=== PATIENT | female | born 1955 | race Caucasian/White ===

== ENCOUNTER 2021-02-25 12:46 | Inpatient (IN) ==
[2021-02-25] MEDS ORDERED: cefTRIAXone 2,000 MG in 0.9 % Sodium Chloride Mini Bag 100 ML IVPB ONE (13:58)
[2021-02-25] MEDS ORDERED: 0.9 % Sodium Chloride 1,000 ML IVC ONE (13:58)
[2021-02-25 14:29] LABS: Bilirubin,Urine Negative (Negative); Blood,Urine Moderate (Negative); Clarity,Urine Cloudy (Clear); Color,Urine Yellow (Yellow); Glucose,Urine (UA) Normal (Normal); Ketones,Urine Negative (Negative); Leukocyte Esterase,Urine Small (Negative); Nitrite,Urine Positive (Negative); Protein,Urine 100 mg/dL (Neg-Trace); Specific Gravity,Urine 1.025 (1.010-1.025); Urobilinogen,Urine Normal (Normal)
[2021-02-25 14:36] LABS: Amorphous Sediment,Urine Moderate per hpf (None-Few); Bacteria,Urine Moderate per hpf (None-Few); Squamous Epithelial Cell,Urine Few per hpf (None-Few); WBC,Urine 50-100 per hpf (0-3)
[2021-02-25 14:46] LABS: Hematocrit 28.1 % (35.3-44.9); Hemoglobin 9.5 g/dL (11.5-15.4); Mean Corpuscular HGB Conc 33.8 g/dL (31.6-35.5); Mean Corpuscular Hemoglobin 34.5 pg (28.0-33.3); Mean Corpuscular Volume 102.2 fL (83.0-100.0); Mean Platelet Volume 10.7 fL (9.4-12.4); Platelet Count 121 K/mcL (140-400); Red Blood Count 2.75 M/mcL (3.82-4.97); Red Cell Distribution Width 15.2 % (11.5-14.5); White Blood Count 21.1 K/mcL (4.3-11.1)
[2021-02-25 14:59] LABS: Albumin 3.2 g/dL (3.5-5.7); Albumin/Globulin Ratio 0.9 (1.1-2.2); Bilirubin,Direct 0.2 mg/dL (0.0-0.2); Bilirubin,Indirect 0.5 mg/dL (0.0-1.0); Bilirubin,Total 0.7 mg/dL (0.3-1.0); Calcium 8.2 mg/dL (8.6-10.3); Globulin 3.4 g/dL (2.4-3.5); Potassium 3.3 mEq/L (3.5-5.1); Total Protein 6.6 g/dL (6.4-8.9)
[2021-02-25 15:21] LABS: Basophils # 0.4 K/mcL (0.0-0.2); Lymphocytes # 1.7 K/mcL (0.6-4.6)
[2021-02-25 15:22] LABS: Platelet Estimate Slight Decrease (Normal)
[2021-02-25] MEDS ORDERED: diazePAM 5 MG TABLET PO ONE (15:54)
[2021-02-25] MEDS ORDERED: MOM Conc 10 ML UD.LIQ PO PRN (16:02)
[2021-02-25] MEDS ORDERED: Naloxone 0.4 MG/ML INJ IVP PRN (16:02)
[2021-02-25] MEDS ORDERED: Ondansetron 4 MG/2 ML VIAL IVP PRN (16:02)
[2021-02-25] MEDS ORDERED: Mag Hydrox/Al Hydrox/Simeth 30 ML UDC PO PRN (16:02)
[2021-02-25] MEDS: Acetaminophen 325 MG TABLET PO PRN (17:42)
[2021-02-25] MEDS ORDERED: Ondansetron ODT 4 MG TAB.RAPDIS PO PRN (18:14)
[2021-02-25] MEDS ORDERED: Fluticasone Propionate Nasal 50 MCG/SPRAY BOTTLE NS PRN (18:14)
[2021-02-25] MEDS ORDERED: Dextrose Gel 15 GM/37.5 ML TUBE PO PRN ×2 (18:21)
[2021-02-25] MEDS: Insulin LISPRO 300 UNITS/3 ML VIAL SUBQ SCH (21:15)
[2021-02-25] MEDS: 0.9 % Sodium Chloride 1,000 ML IVC SCH (21:16)
[2021-02-25] MEDS ORDERED: DICLOFENAC TP PRN (23:56)
[2021-02-26] MEDS: Acetaminophen 325 MG TABLET PO PRN ×2 (01:14→10:10)
[2021-02-26] MEDS: 0.9 % Sodium Chloride 1,000 ML IVC SCH ×2 (05:01→16:52)
[2021-02-26 06:05] LABS: blaKPC Carbapenem-Resist Gene Not Detected (Not Detect)
[2021-02-26 06:06] LABS: Acinetobacter baumannii by PCR Not Detected (Not Detect); Candida albicans by PCR Not Detected (Not Detect); Candida glabrata by PCR Not Detected (Not Detect); Candida krusei by PCR Not Detected (Not Detect); Candida parapsilosis by PCR Not Detected (Not Detect); Candida tropicalis by PCR Not Detected (Not Detect); Enterobacter cloacae Cmplx PCR Not Detected (Not Detect); Enterococcus by PCR Not Detected (Not Detect); Escherichia coli by PCR DETECTED (Not Detect); Klebsiella oxytoca by PCR Not Detected (Not Detect); Klebsiella pneumoniae by PCR Not Detected (Not Detect); Proteus by PCR Not Detected (Not Detect); Pseudomonas aeruginosa by PCR Not Detected (Not Detect); Serratia marcescens by PCR Not Detected (Not Detect); Staphylococcus aureus by PCR Not Detected (Not Detect); Staphylococcus by PCR Not Detected (Not Detect); Streptococcus agalactiae(B)PCR Not Detected (Not Detect); Streptococcus by PCR Not Detected (Not Detect); Streptococcus pneumoniae PCR Not Detected (Not Detect); Streptococcus pyogenes (A) PCR Not Detected (Not Detect)
[2021-02-26 07:11] LABS: Basophils % 0.2 %; Eosinophils % 0.1 %; Hematocrit 25.4 % (35.3-44.9); Hemoglobin 8.5 g/dL (11.5-15.4); Immature Granulocytes % 2.3 % (0-4); Lymphocytes # 1.5 K/mcL (0.6-4.6); Lymphocytes % 12.3 %; Mean Corpuscular HGB Conc 33.5 g/dL (31.6-35.5); Mean Corpuscular Hemoglobin 34.8 pg (28.0-33.3); Mean Corpuscular Volume 104.1 fL (83.0-100.0); Mean Platelet Volume 10.1 fL (9.4-12.4); Monocytes # 0.8 K/mcL (0.0-1.3); Monocytes % 6.1 %; Neutrophils # 9.7 K/mcL (1.6-8.9); Platelet Count 103 K/mcL (140-400); Red Blood Count 2.44 M/mcL (3.82-4.97); Red Cell Distribution Width 15.7 % (11.5-14.5); White Blood Count 12.3 K/mcL (4.3-11.1)
[2021-02-26 07:31] LABS: Calcium 7.6 mg/dL (8.6-10.3); Potassium 3.2 mEq/L (3.5-5.1)
[2021-02-26] MEDS: Cholecalciferol (D-3) 1,000 UNIT (25MCG) TABLET PO SCH (08:35)
[2021-02-26] MEDS: *HR* Rivaroxaban 10 MG TABLET PO SCH (08:36)
[2021-02-26] MEDS ORDERED: *HR* Glimepiride 2 MG TABLET PO SCH (09:00)
[2021-02-26] MEDS ORDERED: predniSONE 20 MG TABLET PO SCH (09:00)
[2021-02-26] MEDS ORDERED: cefTRIAXone 2,000 MG in 0.9 % Sodium Chloride Mini Bag 100 ML IVPB SCH (14:00)
[2021-02-26] MEDS: Cefepime HCl 2,000 MG in 0.9 % Sodium Chloride Mini Bag 100 ML IVPB SCH (17:01)
[2021-02-26] MEDS: *HR* OxyCODONE/APAP 10/325 TABLET PO PRN (18:50)
[2021-02-26] MEDS: diazePAM 5 MG TABLET PO PRN (21:19)
[2021-02-26] MEDS: *HR* Dextrose 50 % in Water (Syg) 50 ML SYRINGE IVP PRN (21:19)
[2021-02-26] MEDS: Insulin LISPRO 300 UNITS/3 ML VIAL SUBQ SCH (21:20)
[2021-02-27] MEDS: *HR* Dextrose 50 % in Water (Syg) 50 ML SYRINGE IVP PRN (00:46)
[2021-02-27] MEDS: Cefepime HCl 2,000 MG in 0.9 % Sodium Chloride Mini Bag 100 ML IVPB SCH ×4 (01:25→23:06)
[2021-02-27] MEDS: Acetaminophen 325 MG TABLET PO PRN ×3 (02:57→20:37)
[2021-02-27] MEDS: D5% in Water 1,000 ML IVC PRN ×3 (03:15→23:04)
[2021-02-27] MEDS: *HR* Rivaroxaban 10 MG TABLET PO SCH (08:10)
[2021-02-27] MEDS: Cholecalciferol (D-3) 1,000 UNIT (25MCG) TABLET PO SCH (08:11)
[2021-02-27 08:29] LABS: Basophils % 0.4 %; Eosinophils # 0.2 K/mcL (0.0-0.6); Eosinophils % 3.9 %; Hematocrit 23.5 % (35.3-44.9); Hemoglobin 7.8 g/dL (11.5-15.4); Immature Granulocytes % 0.4 % (0-4); Lymphocytes # 1.4 K/mcL (0.6-4.6); Mean Corpuscular HGB Conc 33.2 g/dL (31.6-35.5); Mean Corpuscular Hemoglobin 34.7 pg (28.0-33.3); Mean Corpuscular Volume 104.4 fL (83.0-100.0); Mean Platelet Volume 11.3 fL (9.4-12.4); Monocytes # 0.7 K/mcL (0.0-1.3); Monocytes % 11.9 %; Neutrophils # 3.4 K/mcL (1.6-8.9); Red Blood Count 2.25 M/mcL (3.82-4.97); Red Cell Distribution Width 15.9 % (11.5-14.5); Segmented Neutrophils % 59.4 %; White Blood Count 5.7 K/mcL (4.3-11.1)
[2021-02-27 08:31] LABS: Platelet Count 87 K/mcL (140-400)
[2021-02-27 08:45] LABS: BUN/Creatinine Ratio 17 (6-26); Blood Urea Nitrogen 17 mg/dL (8-23); Calcium 7.5 mg/dL (8.6-10.3); Carbon Dioxide 25 mEq/L (23-29); Chloride 107 mEq/L (98-107); Glucose 72 mg/dL (70-105); Osmolality,Calculated 286 (280-300); Sodium 138 mEq/L (136-145); eGFR For African Americans > 60 (> 60); eGFR For Non-African Americans 56 (> 60)
[2021-02-27 09:51] LABS: Estimated Average Glucose 120 mg/dl; Hemoglobin A1C 5.8 %
[2021-02-28] MEDS: *HR* Dextrose 50 % in Water (Syg) 50 ML SYRINGE IVP PRN (07:35)
[2021-02-28] MEDS: *HR* Rivaroxaban 10 MG TABLET PO SCH (07:56)
[2021-02-28] MEDS: Cholecalciferol (D-3) 1,000 UNIT (25MCG) TABLET PO SCH (07:56)
[2021-02-28] MEDS: *HR* OxyCODONE/APAP 10/325 TABLET PO PRN (07:57)
[2021-02-28] MEDS: Cefepime HCl 2,000 MG in 0.9 % Sodium Chloride Mini Bag 100 ML IVPB SCH (08:00)
[2021-02-28 08:49] LABS: Basophils % 0.4 %; Eosinophils # 0.2 K/mcL (0.0-0.6); Eosinophils % 2.5 %; Hematocrit 24.8 % (35.3-44.9); Hemoglobin 8.3 g/dL (11.5-15.4); Immature Granulocytes % 0.4 % (0-4); Lymphocytes # 1.8 K/mcL (0.6-4.6); Lymphocytes % 22.4 %; Mean Corpuscular HGB Conc 33.5 g/dL (31.6-35.5); Mean Corpuscular Hemoglobin 34.3 pg (28.0-33.3); Mean Corpuscular Volume 102.5 fL (83.0-100.0); Mean Platelet Volume 10.8 fL (9.4-12.4); Monocytes # 1.2 K/mcL (0.0-1.3); Monocytes % 15.4 %; Neutrophils # 4.7 K/mcL (1.6-8.9); Red Blood Count 2.42 M/mcL (3.82-4.97); Red Cell Distribution Width 15.5 % (11.5-14.5); Segmented Neutrophils % 58.9 %; White Blood Count 7.9 K/mcL (4.3-11.1)
[2021-02-28 08:59] LABS: Platelet Count 93 K/mcL (140-400)
[2021-02-28 09:32] LABS: BUN/Creatinine Ratio 15 (6-26); Blood Urea Nitrogen 15 mg/dL (8-23); Calcium 7.4 mg/dL (8.6-10.3); Carbon Dioxide 23 mEq/L (23-29); Chloride 105 mEq/L (98-107); Glucose 70 mg/dL (70-105); Osmolality,Calculated 279 (280-300); Potassium 3.4 mEq/L (3.5-5.1); Sodium 135 mEq/L (136-145); eGFR For African Americans > 60 (> 60); eGFR For Non-African Americans 55 (> 60)
[2021-02-28] MEDS: cefTRIAXone 2,000 MG in 0.9 % Sodium Chloride Mini Bag 100 ML IVPB SCH (11:41)
[2021-02-28] MEDS: Magnesium Oxide 400 MG TABLET PO SCH (12:02)
[2021-02-28] MEDS: Acetaminophen 325 MG TABLET PO PRN (15:15)
[2021-02-28] MEDS: D5% in Water 1,000 ML IVC PRN (21:04)
[2021-03-01] MEDS: Acetaminophen 325 MG TABLET PO PRN (01:17)
[2021-03-01] MEDS: diazePAM 5 MG TABLET PO PRN (01:17)
[2021-03-01] MEDS: *HR* OxyCODONE/APAP 10/325 TABLET PO PRN (04:27)
[2021-03-01 08:26] LABS: Basophils % 0.4 %; Eosinophils # 0.2 K/mcL (0.0-0.6); Eosinophils % 2.2 %; Hematocrit 25.2 % (35.3-44.9); Hemoglobin 8.4 g/dL (11.5-15.4); Immature Granulocytes % 0.4 % (0-4); Lymphocytes # 2.2 K/mcL (0.6-4.6); Lymphocytes % 29.9 %; Mean Corpuscular HGB Conc 33.3 g/dL (31.6-35.5); Mean Corpuscular Hemoglobin 34.7 pg (28.0-33.3); Mean Corpuscular Volume 104.1 fL (83.0-100.0); Mean Platelet Volume 11.2 fL (9.4-12.4); Monocytes % 13.2 %; Neutrophils # 3.9 K/mcL (1.6-8.9); Platelet Count 100 K/mcL (140-400); Red Blood Count 2.42 M/mcL (3.82-4.97); Red Cell Distribution Width 15.3 % (11.5-14.5); Segmented Neutrophils % 53.9 %; White Blood Count 7.3 K/mcL (4.3-11.1)
[2021-03-01] MEDS: *HR* Rivaroxaban 10 MG TABLET PO SCH (08:43)
[2021-03-01] MEDS: Cholecalciferol (D-3) 1,000 UNIT (25MCG) TABLET PO SCH (08:44)
[2021-03-01] MEDS: Magnesium Oxide 400 MG TABLET PO SCH (08:44)
[2021-03-01 08:46] LABS: BUN/Creatinine Ratio 13 (6-26); Blood Urea Nitrogen 13 mg/dL (8-23); Calcium 8.1 mg/dL (8.6-10.3); Carbon Dioxide 26 mEq/L (23-29); Chloride 104 mEq/L (98-107); Glucose 133 mg/dL (70-105); Osmolality,Calculated 286 (280-300); Potassium 3.7 mEq/L (3.5-5.1); Sodium 137 mEq/L (136-145); eGFR For African Americans > 60 (> 60); eGFR For Non-African Americans 57 (> 60)
[2021-03-01 08:49] VITALS: RESP 17
[2021-03-01 10:52] VITALS: BP 160/75; PULSE 93; TEMP 98.3; O2SAT 94
[2021-03-01] MEDS: cefTRIAXone 2,000 MG in 0.9 % Sodium Chloride Mini Bag 100 ML IVPB SCH (11:48)
== END 2021-03-01 14:20 | disposition home or self-care (01) | DRG 871 ==
LOC: INPPIK 12:46 → EMEROOPIK 12:46 → INPPIK 16:41
PROVIDERS: ADMIT Internal Medicine; ATTEND Internal Medicine

== ENCOUNTER 2021-03-20 19:51 | Observation (INO) ==
[2021-03-20] MEDS ORDERED: 0.9 % Sodium Chloride 1,000 ML IVC ONE (20:15)
[2021-03-20] MEDS ORDERED: 0.9 % Sodium Chloride 1,000 ML IVC SCH (20:15)
[2021-03-20] MEDS ORDERED: *HR* OxyCODONE/APAP 10/325 TABLET PO PRN (21:57)
[2021-03-20] MEDS ORDERED: diazePAM 5 MG TABLET PO PRN (21:57)
[2021-03-20] MEDS ORDERED: Melatonin 3 MG TABLET PO PRN (21:57)
[2021-03-20] MEDS ORDERED: Mag Hydrox/Al Hydrox/Simeth 30 ML UDC PO PRN (21:57)
[2021-03-20] MEDS ORDERED: Naloxone 0.4 MG/ML INJ IVP PRN (21:57)
[2021-03-20] MEDS ORDERED: Ondansetron ODT 4 MG TAB.RAPDIS PO PRN (21:57)
[2021-03-20] MEDS ORDERED: MOM Conc 10 ML UD.LIQ PO PRN (21:57)
[2021-03-20] MEDS ORDERED: Fluticasone Propionate Nasal 50 MCG/SPRAY BOTTLE NS PRN (21:57)
[2021-03-20] MEDS ORDERED: DICLOFENAC SODIUM 100 GM TP PRN (22:37)
[2021-03-20] MEDS: 0.9 % Sodium Chloride 1,000 ML IVC SCH (23:39)
[2021-03-21] MEDS ORDERED: ERGOCALCIFEROL 400 UNIT PO SCH (09:00)
[2021-03-21 09:25] LABS: Basophils % 0.2 %; Eosinophils % 0.2 %; Hematocrit 30.1 % (35.3-44.9); Hemoglobin 10.3 g/dL (11.5-15.4); Immature Granulocytes % 0.8 % (0-4); Lymphocytes # 3.9 K/mcL (0.6-4.6); Lymphocytes % 29.2 %; Mean Corpuscular HGB Conc 34.2 g/dL (31.6-35.5); Mean Corpuscular Hemoglobin 34.1 pg (28.0-33.3); Mean Corpuscular Volume 99.7 fL (83.0-100.0); Mean Platelet Volume 10.8 fL (9.4-12.4); Monocytes # 0.4 K/mcL (0.0-1.3); Neutrophils # 8.8 K/mcL (1.6-8.9); Platelet Count 121 K/mcL (140-400); Red Blood Count 3.02 M/mcL (3.82-4.97); Red Cell Distribution Width 13.3 % (11.5-14.5); Segmented Neutrophils % 66.6 %; White Blood Count 13.2 K/mcL (4.3-11.1)
[2021-03-21 09:31] LABS: VBG Chloride 109 mEq/L (98-107)
[2021-03-21] MEDS ORDERED: *HR* Dextrose 50 % in Water (Syg) 50 ML SYRINGE IVP PRN (09:58)
[2021-03-21] MEDS ORDERED: Dextrose Gel 15 GM/37.5 ML TUBE PO PRN ×2 (09:58)
[2021-03-21] MEDS ORDERED: D5% in Water 1,000 ML IVC PRN (09:58)
[2021-03-21 09:59] LABS: Alanine Aminotransferase 15 Units/L (7-52); Albumin 3.4 g/dL (3.5-5.7); Albumin/Globulin Ratio 0.9 (1.1-2.2); Alkaline Phosphatase 67 Units/L (34-104); Aspartate Amino Transferase 41 Units/L (13-39); BUN/Creatinine Ratio 24 (6-26); Bilirubin,Total 0.9 mg/dL (0.3-1.0); Blood Urea Nitrogen 22 mg/dL (8-23); Calcium 8.3 mg/dL (8.6-10.3); Carbon Dioxide 23 mEq/L (23-29); Globulin 3.6 g/dL (2.4-3.5); Glucose 80 mg/dL (70-105); Magnesium 1.3 mg/dL (1.6-2.6); eGFR For African Americans > 60 (> 60); eGFR For Non-African Americans > 60 (> 60)
[2021-03-21] MEDS: Cholecalciferol (D-3) 1,000 UNIT (25MCG) TABLET PO SCH (10:27)
[2021-03-21] MEDS: *HR* Glimepiride 2 MG TABLET PO SCH (10:27)
[2021-03-21] MEDS: lisinopriL 5 MG TABLET PO SCH (10:27)
[2021-03-21] MEDS: amLODIPine 5 MG TABLET PO SCH (10:27)
[2021-03-21] MEDS: carvediloL 6.25 MG TABLET PO SCH ×2 (10:27→16:56)
[2021-03-21] MEDS: *HR* Rivaroxaban 10 MG TABLET PO SCH (10:28)
[2021-03-21] MEDS: 0.9 % Sodium Chloride 1,000 ML IVC SCH ×2 (10:28→21:10)
[2021-03-21] MEDS: *HR* Metformin 500 MG TABLET PO SCH ×2 (10:28→16:55)
[2021-03-21] MEDS: cefTRIAXone 2,000 MG in 0.9 % Sodium Chloride Mini Bag 100 ML IVPB SCH (10:29)
[2021-03-21] MEDS ORDERED: Acetaminophen 325 MG TABLET PO PRN (11:28)
[2021-03-21] MEDS: DEXAMETHASONE 0.5 MG/5 ML PO PRN (12:14)
[2021-03-21] MEDS: Insulin LISPRO 300 UNITS/3 ML VIAL SUBQ SCH ×2 (15:58→16:48)
[2021-03-22 02:55] VITALS: O2SAT 96
[2021-03-22 06:14] LABS: Hematocrit 25.6 % (35.3-44.9); Hemoglobin 8.7 g/dL (11.5-15.4); Mean Corpuscular Hemoglobin 34.7 pg (28.0-33.3); Mean Platelet Volume 11.1 fL (9.4-12.4); Red Blood Count 2.51 M/mcL (3.82-4.97); Red Cell Distribution Width 13.4 % (11.5-14.5); White Blood Count 9.8 K/mcL (4.3-11.1)
[2021-03-22 06:17] LABS: Platelet Count 88 K/mcL (140-400)
[2021-03-22 06:52] VITALS: BP 156/82; PULSE 79; RESP 18; TEMP 98.2
[2021-03-22] MEDS ORDERED: LENVATINIB 4 MG PO SCH ×2 (09:00→10:15)
[2021-03-22] MEDS: Insulin LISPRO 300 UNITS/3 ML VIAL SUBQ SCH ×2 (09:56→11:50)
[2021-03-22] MEDS: *HR* Rivaroxaban 10 MG TABLET PO SCH (09:57)
[2021-03-22] MEDS: *HR* Metformin 500 MG TABLET PO SCH (09:58)
[2021-03-22] MEDS: amLODIPine 5 MG TABLET PO SCH (09:58)
[2021-03-22] MEDS: *HR* Glimepiride 2 MG TABLET PO SCH (09:58)
[2021-03-22] MEDS: carvediloL 6.25 MG TABLET PO SCH (09:58)
[2021-03-22] MEDS: Cholecalciferol (D-3) 1,000 UNIT (25MCG) TABLET PO SCH (09:58)
[2021-03-22] MEDS: lisinopriL 5 MG TABLET PO SCH (09:58)
[2021-03-22] MEDS: cefTRIAXone 2,000 MG in 0.9 % Sodium Chloride Mini Bag 100 ML IVPB SCH (09:59)
[2021-03-22] MEDS: DEXAMETHASONE 0.5 MG/5 ML PO PRN (09:59)
[2021-03-22 13:07] LABS: BUN/Creatinine Ratio 18 (6-26); Blood Urea Nitrogen 15 mg/dL (8-23); Calcium 7.9 mg/dL (8.6-10.3); Carbon Dioxide 25 mEq/L (23-29); Chloride 107 mEq/L (98-107); Glucose 50 mg/dL (70-105); Osmolality,Calculated 288 (280-300); Potassium 3.2 mEq/L (3.5-5.1); Sodium 140 mEq/L (136-145); eGFR For African Americans > 60 (> 60); eGFR For Non-African Americans > 60 (> 60)
== END 2021-03-22 13:25 | disposition home health service (06) ==
LOC: SUPCPDRO → EMEROOPIK 19:51 → INPPIK 19:51
PROVIDERS: ADMIT Family Medicine; ATTEND Family Medicine